=== PATIENT | male | born 1960 | race Caucasian/White ===

== ENCOUNTER 2016-10-23 17:50 | Emergency (ER) | payer MEDICARE, MEDICAID ==
[~2016-10-23] VITALS: Ht 177.8 cm; Wt 80.0 kg
[~2016-10-23 17:50] MED LIST: ASPI325T32 PO; ATOR80TA77 PO; LOSA25TA2 PO; METO50TA3 PO; METR500T19 PO; NYST1000 PO; OMEP20CA11 PO; ONDA-54 PO; OXYC5TAB72 PO; PROM12.510 PO; SERT100T9 PO; T2T PO; [UNRECOGNIZED DRUG - CODE] PO
[2016-10-23 18:33] VITALS: BP 111/72; PULSE 72; RESP 16; O2SAT 96
--- NOTE | 2016-10-23 19:39 | ED.REPORT ---
HPI-Rash / Abscess Date of Service Oct 23, 2016 ED Provider: Torito Lee PA-C [place] is a 48-year-old male who recently underwent chemotherapy for throat cancer presents with redness and swelling of his upper left arm. Patient states that a PICC line removed 2 weeks ago. Itching began approximately 3 days ago and progressed to a small red area surrounding the site of the PICC line. Earlier today and area of manager social work erythema began spreading across his upper inner arm. Patient denies fever, chills, malaise, vomiting, abdominal pain, drug allergies. Nursing Notes Stated Complaint: POSSIBLE INFECTION Chief Complaint: Extremity Trauma Nursing Notes Reviewed: Yes Allergies: Coded Allergies: [place] (Verified Allergy, Severe, airways close up, 09/04/16) duloxetine HCl (Verified Allergy, Severe, hives, 09/03/16) melon (Verified Allergy, Severe, Anaphylaxis, 10/23/16) pregabalin (Verified Allergy, Severe, hives, 09/03/16) Scheduled Aspirin (Aspirin) 325 Mg Tablet 325 MG PO DAILY Atorvastatin Calcium (Atorvastatin Calcium) 80 Mg Tablet 80 MG PO HS Clindamycin (Clindamycin) 300 Mg Capsule 900 MG PO TID Losartan Potassium (Cozaar) 25 Mg Tablet 25 MG PO DAILY Metoprolol Tartrate (Metoprolol Tartrate) 50 Mg Tablet 25 MG PO BID Metronidazole (Metronidazole) 500 Mg Tablet 500 MG PO Q8H Nystatin (Nystatin) 100,000 Unit/1 Ml Oral.susp 500,000 UNIT PO PCHS Omeprazole (Omeprazole) 20 Mg Capsule.dr 20 MG PO BID Sertraline HCl (Sertraline) 100 Mg Tablet 100 MG PO HS Scheduled PRN Acetaminophen/Codeine 300-15mg (Acetaminophen/Codeine 300-15mg) 1 Each Tablet 1 TAB PO Q6H PRN PRN For Pain Ondansetron (Ondansetron) 8 Mg Tablet 8 MG PO BID PRN PRN For Nausea/Vomiting Phenol (Chloraseptic) 20 Ml [place] 1 SPRAY PO PRN For Pain Promethazine (Promethazine) 12.5 Mg Tablet 12.5 MG PO Q4H PRN PRN For Nausea/ Vomiting oxyCODONE (oxyCODONE) 5 Mg Tablet 10 MG PO Q3 PRN PRN For Moderate Pain General Time Seen by MD: 19:21 Chief Complaint Red area Past Medical History Smoking History Former Smoker Review of Systems General: Denies fever, chills, malaise. HEENT: Denies congestion, headache, sore throat. Respiratory: Denies dyspnea, cough, shortness of breath, wheezing. Cardiovascular: Denies chest pain, palpitations. Gastrointestinal: Denies vomiting, diarrhea, abdominal pain. Genitourinary: Denies frequency, urgency, dysuria, hematuria. Otherwise as noted in HPI. Physical Exam General: Well appearing, well developed, well nourished, no acute distress. Left arm: Small area of crust surrounded by approximately 2 cm of dark red, firm induration and tenderness located on the medial aspect of the upper arm. Surrounded by approximately 10 cm of manager social work red erythema and tenderness. No lymphangitis, no axillary lymphadenopathy. Head: Atraumatic, normocephalic. Eyes: No scleral icterus or injection. No discharge. Vision grossly intact. ENT: Voice clear, hearing grossly intact. Respiratory: Regular rate and rhythm. Breath sounds present, clear to auscultation and equal bilaterally. Cardiovascular: Regular rate and rhythm, without murmur, gallop or rub. No pedal edema. Gastrointestinal: Abdomen flat and non-tender without guarding or rebound. Bowel sounds normoactive. Skin: Warm and dry. Neurological: Grossly nonfocal. Psychological: Alert and oriented. Speech appropriate, linear and logical. Behavior appropriate. Initial Vital Signs Vital Signs (First) Date Time Temp Pulse Resp B/P Pulse Ox O2 Delivery O2 Flow Rate FiO2 10/23/16 18:33 36.4 72 16 111/72 96 Room Air Initial VS: Reviewed, Vital signs normal Re-Eval/Medical Decision Med Decision/Clinical Course 48-year-old male currently being treated for throat cancer since with redness and swelling his left upper arm localized around the site of a recently removed PICC line. As a roughly 2 cm area of firm red induration surrounding the site, surrounded by a larger area of erythema. No lymphangitis or axillary lymphadenopathy. No area of fluctuance or signs of a pus pocket. I do not believe this is from incision and drainage. Vital signs stable, patient appears well and denies fever, chills, malaise, vomiting. I do not see any indication of systemic infection. I prescribed clindamycin 900 mg 7 days based on the up-to-date algorithm considering his recent chemotherapy as immunocompromise and consider him to be at risk for MRSA based on the possibility of iatrogenic source. The first dose was provided in the department. Patient will be seeing his oncologist in 2 days and his primary care provider 2 days after that. I demarcated the area of induration and erythema with a skin marker, and believe his other providers will be able to assess the effectiveness therapy. They have been copied on this note. I provided return precautions. Discharge & Departure Impression: Primary Impression: Cellulitis of arm, left Disposition: Home Discharge Condition All VS Reviewed: Yes Condition: Stable Patient Instructions: Cellulitis (ED) Additional Instructions: Evaluation in emergency department for redness and swelling of the left arm. History and physical is reassuring that this is a localized cellulitis, without any systemic infection. I do not detect any abscess that would benefit from drainage. We will treat this with clindamycin 900 mg to be taken 3 times a day for one week. We will give the first dose in emergency department before you leave. Fortunately you have appointment scheduled with your other providers over the next several days. 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 Return to the emergency department for any new or worsening symptoms including increasing redness, pain, swelling or fever, chills, malaise, vomiting Referrals: Zain Chawla PA-C (PCP) EDSupervising Provider for APC: Pedro Wise MD copies to: Zain Chawla PA-C; Delvin Cassidy MD, Seth PA-C Oct 23, 2016 19:39
[2016-10-23] MEDS ORDERED: CLIN-78 PO (19:54)
[2016-11-29] MEDS ORDERED: [UNRECOGNIZED DRUG - CODE] MM (10:11)
[2016-12-13] MEDS ORDERED: HYDR15SO8 PO (09:43)
[2017-01-11] MEDS ORDERED: MORPHINE IR PO (10:03)
== END 2016-10-23 20:04 | disposition home or self-care (01) ==
LOC: SED 17:50
DX: T82.898A Other specified complication of vascular prosthetic devices, implants and grafts, initial encounter (principal); L03.114 Cellulitis of left upper limb; C32.9 Malignant neoplasm of larynx, unspecified; Z92.21 Personal history of antineoplastic chemotherapy; Z79.82 Long term (current) use of aspirin; Z87.891 Personal history of nicotine dependence; Z91.018 Allergy to other foods; Z88.8 Allergy status to other drugs, medicaments and biological substances